=== PATIENT | male | born 1980 | race Caucasian/White ===

== ENCOUNTER 2018-12-12 20:58 | Emergency (ER) | payer MEDICAID ==
[~2018-12-12] VITALS: Ht 180.3 cm; Wt 89.7 kg
[~2018-12-12 20:58] MED LIST: CEPH-443 PO; IBUP-1542 PO
[2018-12-12 21:05] VITALS: Ht 180.3 cm; Wt 89.7 kg
[2018-12-12] MEDS ORDERED: ASPIRIN 81 MG TAB PO ONE (22:30)
[2018-12-13 01:55] VITALS: BP 129/76; PULSE 58; RESP 19
== END 2018-12-13 01:55 | disposition short-term general hospital (02) ==
LOC: E/R 20:58
DX: I21.4 Non-ST elevation (NSTEMI) myocardial infarction (principal); R55 Syncope and collapse; R94.31 Abnormal electrocardiogram [ECG] [EKG]
CPT/HCPCS: 36415; 71045; 80048; 84484; 85025; 85610; 85730; 93005; Z7502; Z7610